=== PATIENT | male | born 1950 | race Caucasian/White ===

== ENCOUNTER 2021-09-26 19:43 | Observation (INO) | payer OTHER, SELFPAY ==
[2021-09-26] VITALS (28 sets, daily range): BP systolic 85–143; BP diastolic 63–91; PULSE 65–106; RESP 14–24; TEMP 36.6; O2SAT 89–97
--- NOTE | ~2021-09-26 | XR_ITS ---
EXAMINATION: XR chest 2V Exam Date/Time: 09/26/2021 20:30 CDT HISTORY: syncope, nausea x today Comparison: None available. RESULT: Lines, tubes, and devices: None. Lungs and pleura: Bibasilar scar/atelectasis, otherwise clear. Cardiomediastinal silhouette: Stable cardiomediastinal silhouette. Other: No acute osseous or upper abdominal finding. IMPRESSION: No acute cardiopulmonary process. Reviewed, dictated and finalized at location K.
--- NOTE | ~2021-09-26 | CT_ITS ---
EXAMINATION: CT brain wo con DATE: 09/26/2021 20:30 INDICATION: head injury, syncope . TECHNIQUE: Computed tomography (CT) of the head was performed without intravenous contrast. The mA wa s adjusted according to patient size. Iterative reconstruction technique was employed. The dose-lengt h product was 605.33 mGy-cm. COMPARISON: None FINDINGS: No acute intracranial hemorrhage or extra-axial fluid collection. No hydrocephalus, mass, or herniation. No acute ischemic infarct. Unremarkable dural venous sinus attenuation. No acute osseous abnormality. The aerated spaces are clear. Mild atrophy and chronic white matter change. Atherosclerotic intracranial calcification. IMPRESSION: No acute intracranial process. Reviewed, dictated and finalized at location K.
--- NOTE | ~2021-09-26 | US_ITS ---
EXAMINATION: US carotid duplex BI DATE: 09/27/2021 17:18 INDICATION: Syncope TECHNIQUE: Grayscale, color Doppler, and pulsed Doppler images of the cervical carotid arteries were obtained. The degree of vessel stenosis is placed in one of the following categories: normal, <50%, 5 0-69%, >=70% but less than near-occlusion, near-occlusion, or total occlusion. Note that percent sten osis relative to normal distal artery lumen diameter is indirectly measured from velocity measurement s as described by Emanuel, et al. Radiology 2003; 229:340-346. COMPARISON: None. FINDINGS: RIGHT: The right common carotid artery (CCA) peak systolic velocity (PSV) is 72 cm/s. The right internal car otid artery (ICA) PSV is 67 cm/s. The right ICA end-diastolic velocity (EDV) is 190.9 cm/s. The right ICA/CCA PSV ratio is 0.9. Grayscale and color Doppler images yield an estimate of <50% diameter redu ction from plaque in the ICA. The external carotid artery (ECA) PSV is 87 cm/s. There is antegrade fl ow in the right vertebral artery. LEFT: The left CCA PSV is 76 cm/s. The left ICA PSV is 56 cm/s. The left ICA EDV is 18 cm/s. The left ICA/C CA PSV ratio is 0.7. Grayscale and color Doppler images yield an estimate of <50% diameter reduction from plaque in the ICA. The ECA PSV is 62 cm/s. There is antegrade flow in the left vertebral artery. IMPRESSION: 1. <50% stenosis in the right internal carotid artery. 2. <50% stenosis in the left internal carotid artery. Reviewed, dictated and finalized at location A.
--- NOTE | 2021-09-26 19:44 | ECG_ITS ---
Measurements Intervals [place] Rate: 106 P: 9 AR: 166 QRS: -24 QRSD: 105 T: 7 QT: 350 QTc: 466 Interpretive Statements SINUS TACHYCARDIA BORDERLINE LEFT AXIS DEVIATION [QRS AXIS < -20] MODERATE VOLTAGE CRITERIA FOR LVH, CONSIDER NORMAL VARIANT [MEETS CRITERIA IN ONE OF: R(aVL), S(V1), R(V5), R(V5/V6)+S(V1)] ABNORMAL RHYTHM ECG NO PREVIOUS ECG AVAILABLE FOR COMPARISON Electronically Signed On 09-27-2021 11:56:53 CDT by Tera Campoverde M.D.
--- NOTE | 2021-09-26 20:03 | ED.GENADULT ---
HPI - General Adult General Chief complaint: Syncope Stated complaint: syncopal episodes History of Present Illness HPI narrative: 70-year-old male with history of hypertension, diabetes presenting to the emergency department for evaluation after having a syncopal episode. Patient states he had been at the [facility] for approximately 4 hours. Patient states prior to going to the [facility] that he felt well. Patient states approximately about an hour before a syncopal episode he began having onset of nausea not feeling well. Patient states he sat down at a table and continued to feel increasingly lightheaded. Patient states he became diaphoretic and often he did have loss of consciousness causing him to fall from the chair. Patient did strike his head when falling from the chair. EMS was called to the scene. Upon arrival to the scene patient was alert and oriented and lying on the ground. Patient's blood pressure was 140 systolic but did drop to 90s when they sat him up. Patient was transported to the emergency room. Upon arrival to the ED patient states he does feel improved. Patient denied any associated chest pain or shortness of breath with this episode. Patient denies any prior history of IA. Patient did have a stress test many years ago but is not sure when. Patient does not take any blood thinners. Patient does take medications for blood control and high cholesterol. Patient does take metformin for her diabetes. Patient's blood sugars were within normal limits. Patient denies any recent illness. Related Data Home Medications Medication Instructions Recorded Confirmed glipizide 5 mg tablet 1 tablet PO 2XD 09/27/21 09/27/21 metformin 500 mg tablet 1 tablet PO 2XD 09/27/21 09/27/21 pravastatin 20 mg tablet 1 tablet PO 1XD 09/27/21 09/27/21 tamsulosin 0.4 mg capsule (Flomax) 1 cap PO 1XD 09/27/21 09/27/21 Allergies Allergy/AdvReac Type Severity Reaction Status Date / Time lisinopril Allergy Severe Anaphylaxis Verified 09/27/21 01:24 Penicillins Allergy Unknown Hives / Verified 09/26/21 19:55 Red Face Review of Systems Review of Systems: CONSTITUTIONAL: Nausea diaphoresis and syncope which is resolved EYES: Denies visual changes, redness, or discharge. ENT: Denies rhinorrhea, congestion, sore throat, or otalgia. CARDIOVASCULAR: Denies chest pain, palpitations, or edema. RESPIRATORY: Denies cough or dyspnea. GASTROINTESTINAL: Denies abdominal pain, nausea, vomiting, or diarrhea. GENITOURINARY: Denies dysuria or hematuria. SKIN: Denies rash or itching. MUSCULOSKELETAL: Denies back pain, joint pain, or myalgia. NEUROLOGIC: Denies headache, numbness, or weakness. [facility] Family History Family History (Updated 09/27/21 @ 00:36 by Bertha Subramanian RN) Father Cerebrovascular accident Mother Diabetes mellitus Social History Social History Smoking packs per day: 0.5 Smoking cigarettes per day: 10.0 Years smoked: 20 Smoking pack-years: 10.00 Smoking status: Former smoker Tobacco type: pipe Second hand tobacco smoke exposure: No Alcohol intake: former Substance use: never Spiritual care concerns: No Exam Narrative: APPEARANCE: Well appearing, no pain, no distress, well-nourished. HEAD: normocephalic, atraumatic. EYES: PERRLA/EOMI, conjunctivae clear. NOSE: Normal no drainage EARS:TMS clear with good light reflex. THROAT: Pharynx clear, no exudate. NECK: Supple. No adenopathy, no masses. RESPIRATORY: Airway patent, respirations nonlabored. Clear to auscultation bilaterally, no rales, rhonchi, wheezing. CARDIOVASCULAR: Regular rate and rhythm without murmurs rubs or gallops. ABDOMINAL: Soft, nontender, nondistended, normal bowel sounds MUSCULOSKELETAL: Moves all extremities. Strength/ROM intact, No edema, No calf tenderness. NEURO: Alert. Cranial nerves II through XII intact. Good gait. Good coordination SKIN: Warm, dry. Normal Color Course Course Emergency Course: [facility]
[2021-09-26 20:09] LABS: Basophils Percent Auto 0.5 % (0.2-1.2); Eosinophils Absolute Auto 0.1 K/mm3 (0-0.3); Eosinophils Percent Auto 1.2 % (0-4.4); Hematocrit 45.3 % (42.0-52.0); Hemoglobin 16.4 g/dL (14.0-18.0); Immature Granulocyte Absolute 0.03 K/mm3 (0.00-0.031); Immature Granulocyte Percent A 0.4 % (0-0.5); Lymphocytes Percent Auto 21.2 % (18.3-44.2); Mean Corpuscular HGB Conc 36.2 g/dl (32-36); Mean Corpuscular Hemoglobin 31.8 pg (26-34); Mean Platelet Volume 9.8 fl (7.4-10.4); Monocytes Absolute Auto 0.7 K/mm3 (0.1-0.6); Monocytes Percent Auto 7.8 % (2.6-8.5); Neutrophils Absolute Auto 5.9 K/mm3 (1.3-6.7); Neutrophils Percent Auto 68.9 % (45.5-73.1); Platelet Count Result 191 k/mm3 (150-375); Red Blood Count 5.15 M/mm3 (4.6-6.20); Red Cell Distribution Width 12.8 % (11.5-14.5); White Blood Count 8.5 K/mm3 (4.5-10.0)
[2021-09-26] MEDS: ONDANSETRON INJ 4 MG/2 ML VIAL IV PUSH (20:10)
[2021-09-26] MEDS: SODIUM CHLORIDE 0.9% IV 1,000 ML 999 ML IV CONT (20:10)
[2021-09-26 20:17] LABS: Lactic Acid Reflex 2.3 mmol/L (0.7-2.0)
[2021-09-26 20:34] LABS: Alanine Aminotransferase 32 U/L (6-50); Albumin Level 4.4 g/dL (3.5-5.1); Alkaline Phosphatase 100 U/L (38-126); Anion Gap 7 mmol/L (8-16); Aspartate Amino Transferase 30 U/L (17-59); Bilirubin,Total 0.8 mg/dL (0.2-1.3); Blood Urea Nitrogen 18 mg/dL (9-20); Carbon Dioxide 28 mmol/L (22-30); Chloride 104 mmol/L (98-107); Estimated CRCL calculation 69 ml/min; Estimated Glomerular Filt Rate > 60; Glucose 181 mg/dL (65-110); Potassium 3.9 mmol/L (3.4-5.0); Sodium 139 mmol/L (137-145)
[2021-09-26 20:46] LABS: NT Pro B Type Natriuretic Pept 107 pg/mL (5-100); Troponin I < 0.012 ng/mL (0.000-0.034)
[2021-09-26 20:57] LABS: D Dimer 0.46 ug/mL (<0.48)
[2021-09-26 21:40] LABS: Appearance Urine Clear (Clear); Bilirubin Urine 1+ (Negative); Blood Urine Negative (Negative); Color Urine Yellow (Yellow); Glucose Urine UA 1+ mg/dL (Negative); Ketones Urine 1+ mg/dL (Negative); Leukocyte Esterase Ur Negative LEU/UL (Negative); Nitrate Urine Negative (Negative); Protein Urine 1+ mg/dL (Negative); Specific Grav Ur >= 1.030 (1.001-1.035); Urobilinogen Urine 0.2 mg/dL (<2.0); pH Urine 5.5 (5.0-9.0)
[2021-09-26 21:55] LABS: Bacteria Urine Trace /hpf; Calcium Oxalate Crystals Urine Present /hpf; Mucus Urine Few /lpf; Squamous Epithelial Cell Urine Rare /hpf (Few)
[2021-09-26 21:56] LABS: Add Urine Microscopic? YES
[2021-09-26 22:10] LABS: SARS-CoV-2 RNA PCR Negative
[2021-09-26] MEDS: SODIUM CHLORIDE 0.9% IV 1,000 ML 100 ML IV CONT (22:20)
[2021-09-26 23:06] LABS: Reflex Lactic Acid Yes or No Add Lactic
[2021-09-27] VITALS (9 sets, daily range): BP systolic 106–144; BP diastolic 52–76; PULSE 62–87; RESP 17–20; TEMP 36.3–37.1; O2SAT 94–98; BMI 33.2
--- NOTE | 2021-09-27 00:55 | ADMGEN ---
This patient, Shaan Horton, was admitted to 3 [facility] Surg Room 319-01. Patient/family oriented to hospital policies and general routines including ID bracelet, bed and alarms, visiting hours, pain management, procedures, bathroom and other care routines, personal items, smoking policy, room service/diet, and visiting hours. Information on how to activate the Rapid Response Team has been discussed. Patient/Family are encouraged to report perceived risks to care and to ask questions if they do not understand what they are told or what they should do.
[2021-09-27 00:56] LABS: Lactic Acid 1.5 mmol/L (0.7-2.0)
[2021-09-27] MEDS: SODIUM CHLORIDE 0.9% IV 1,000 ML 100 ML IV CONT ×2 (01:58→12:14)
[2021-09-27 08:06] LABS: Glucose Point of Care 180 mg/dl (65-105)
--- NOTE | 2021-09-27 08:22 | PM.IMHP ---
H&P: HPI History of Present Illness Date/Time: 09/27/21 08:22 Chief Complaint: Syncopal episode Narrative: Patient 70-year-old male with past medical history of hypertension, diabetes mellitus type 2, BPH, and tobacco dependence. Patient presented to [facility] for further evaluation after having a syncopal episode. Patient reports that he has been at the [facility] for approximately 4 hours prior to this episode. Patient states prior to going to the [facility] that he fell well. Approximately [place] hour before syncopal episode he began having onset of nausea. Patient was able to sit down as a table and continue to feel increasingly lightheaded. He became diaphoretic and lost consciousness causing him to fall from the chair onto the floor. Patient did strike his head when falling from a chair. Ambulance was called to the scene. Upon arrival to the scene the patient was alert and oriented lying on the ground. His blood pressure was 140 systolic leads however it did drop to the 90s when they sat him up. Patient was transported to the emergency room. Upon arrival to the emergency department the patient did feel improvement. He denied any associated chest pain shortness breast with the syncopal episode. During the evaluation in the emergency department the patient were denied any history of a myocardial infarction. He does report a stress test many years ago but was unsure the results. Patient does not take any blood thinners. He denies any medications for blood pressure control. Patient does take metformin on a regular basis and reports compliance for his diabetes mellitus. Blood sugars have been WNL. Patient denies any recent sick contacts or illnesses. Further workup was performed in the emergency department and labs and imaging were obtained. Patient had a WBC of 8.5, hemoglobin 16.4, hematocrit 45.3, platelet count 191, D-dimer 0.46, lactic acid 2.3. UA was obtained which revealed yellow clear urine with trace bacteria. CT of the head did not reveal acute intracranial process and chest x-ray did not reveal an acute cardiopulmonary process. EKG was performed and revealed tachycardia, sinus rhythm with nonspecific ST changes and normal QRS. Hospitalist team was consulted for further management admitted to observation for further workup. Review of Systems Review of Systems: All systems reviewed & are unremarkable except as noted in HPI and below PMFSH Family History Family History (Updated 09/27/21 @ 00:36 by Bertha D. Moris, RN) Father Cerebrovascular accident Mother Diabetes mellitus Social History Social History Smoking packs per day: 0.5 Smoking cigarettes per day: 10.0 Years smoked: 20 Smoking pack-years: 10.00 Smoking status: Former smoker Tobacco type: pipe Second hand tobacco smoke exposure: No Alcohol intake: former Substance use: never Spiritual care concerns: No Meds Home Medications and Allergies Home Medications Medication Instructions Recorded Confirmed Type glipizide 5 mg tablet 1 tablet PO 2XD 09/27/21 09/27/21 History metformin 500 mg tablet 1 tablet PO 2XD 09/27/21 09/27/21 History pravastatin 20 mg tablet 1 tablet PO 1XD 09/27/21 09/27/21 History tamsulosin 0.4 mg capsule (Flomax) 1 cap PO 1XD 09/27/21 09/27/21 History Allergies Allergy/AdvReac Type Severity Reaction Status Date / Time lisinopril Allergy Severe Anaphylaxis Verified 09/27/21 01:24 Penicillins Allergy Unknown Hives / Verified 09/26/21 19:55 Red Face Vital Signs Vital Signs - 24 hr 09/26/21 19:49 09/26/21 20:15 09/26/21 20:18 Temperature 97.9 F Pulse Rate 101 H 101 H Respiratory Rate 18 Blood Pressure 140/86 140/86 Pulse Oximetry 95 93 Oxygen Delivery Room Air Room Air 09/26/21 20:18 09/26/21 19:55 09/26/21 20:00 Temperature Pulse Rate 106 H 103 H 92 Respiratory Rate 16 20 Blood Pressure 143/77 H Pulse Oximetry 93 92 Oxygen Ela
--- NOTE | 2021-09-27 08:27 | ECHO_ITS ---
Patient Info Name: Shaan Horton Age: 70 years : 1950 Gender: Male Ht: 72 in Wt: 244 lbs BSA: 2.40 m2 HR: 63 bpm BP: 116 / 52 mmHg Heart Rhythm: Sinus Rhythm Technical Quality: Fair Exam Date: 09/27/2021 10:07 AM Exam Location: [facility] Pulmonary Patient Status: Inpatient Admit Date: 09/26/2021 Staff Ordering Physician: Tiffanie Weathers APRN Accounting Machine Operator: Michelle Pradhan RDCS Attending Provider: Geovani Maldonado MD Referring Physician: Jasiel AYALA; Exam Type: CA echo dop color flow w con Study Info Indications - SOB Complete two-dimensional, color flow and Doppler transthoracic echocardiogram is performed with contrast to opacify the left ventricle and to improve the deliniation of the left ventricle endocardial borders. Contrast/Agitated Saline Contrast/Ag. Saline: Definity Amount: 3.00 ml Administered By: Michelle Pradhan RDCS Existing IV Access: Yes IV Access Condition: patent with no signs of infiltration Summary 1. Normal left ventricular size with mild concentric hypertrophy. Good systolic function of all segments with no segmental wall motion abnormality. Ejection fraction is 72%. Grade 2 diastolic dysfunction is present. 2. Left atrial chamber dimension is mildly enlarged. 3. No pulmonary hypertension, estimated pulmonary arterial systolic pressure is 25 mmHg. 4. Mild aortic valve calcification; probably trileaflet aortic valve, no significant stenosis. 5. Normal sinus rhythm. 6. Technically difficult study; definity echo contrast used. Left Ventricle Left ventricular chamber dimension is normal. Left ventricular systolic function is normal, estimated at 65-70%. There is mildly increased left ventricular wall thickness. Left ventricular septal wall motion is normal. The left ventricular diastolic function is grade II diastolic dysfunction. Right Ventricle Right ventricular chamber dimension is normal. Right ventricular systolic function is normal. Left Atria Left atrial chamber dimension is mildly enlarged. Right Atria Right atrial chamber dimension is normal. Aortic Valve The aortic valve is probable trileaflet. There is no aortic valve sclerosis. There is no aortic valve stenosis. There is no aortic valve regurgitation. There is mild aortic valve calcification. Pulmonic Valve The pulmonic valve is normal. There is no pulmonic valve stenosis. There is no pulmonic regurgitation. Mitral Valve The mitral valve has normal leaflets. There is no mitral valve stenosis. There is no mitral valve regurgitation. Tricuspid Valve The tricuspid valve leaflets are normal. There is no significant tricuspid valve stenosis. There is trace tricuspid valve regurgitation. No pulmonary hypertension, estimated pulmonary arterial systolic pressure is 25 mmHg. Pericardium/Pleural The pericardium appears normal. There is no pericardial effusion. Inferior Vena Cava Not well visualized inferior vena cava with >50% collapse upon inspiration consistent with Empty right atrial pressure, 10 mmHg. Aorta The aortic root size at the sinus of Valsalva is normal. The prox ascending aorta size is normal. Left Ventricular Outflow Tract Name Value Normal LVOT 2D
--- NOTE | 2021-09-27 09:19 | PC.NURSE ---
called pharmacy for lovenox, flomax and pravastatin this morning, awaiting delivery of medication.
[2021-09-27 09:28] LABS: Hemoglobin A1C 7.7 % (<5.7)
[2021-09-27 09:33] LABS: Iron 90 ug/dL (49-181)
[2021-09-27 09:42] LABS: Percent Iron Saturation 31 % (20-50)
[2021-09-27] MEDS: PRAVASTATIN SODIUM 20 MG TABLET PO (09:48)
[2021-09-27] MEDS: ENOXAPARIN 40 MG/0.4 ML SYRINGE SUB-Q (09:48)
[2021-09-27] MEDS: TAMSULOSIN HCL 0.4 MG CAPSULE PO (09:48)
--- NOTE | 2021-09-27 10:00 | PCPTNOTE ---
Attempted to see patient for physical therapy evaluation at 10:00. Patient was getting EKG.
[2021-09-27] MEDS: PERFLUTREN LIPID MICROSPHERES 1.5 ML VIAL DILUTED TO 10 ML TOTAL VOLUME IV PUSH (10:38)
--- NOTE | 2021-09-27 10:39 | IVDEFINITY ---
Prior to administration of IV Definity the patient was educated on the risks and benefits of the imaging enhancing agent including potential adverse side effects. The patient verbalized understanding. Allergies were verified. No exclusion criteria were identified and at least one of the following inclusion criteria were met: 1) physician request, 2) patient technically difficult to image (per the [place] [employer] Echocardi[employer] guidelines of two or more segments not discernable within the apical view), or 3) questionable left ventricular function. ?
[2021-09-27] MEDS: INSULIN ASPART (*BKC) 100 UNITS/ML SUB-Q ×2 (11:49→16:51)
[2021-09-27 12:10] LABS: Glucose Point of Care 216 mg/dl (65-105)
[2021-09-27 16:46] LABS: Glucose Point of Care 226 mg/dl (65-105)
[2021-09-27] MEDS: MELATONIN 5 MG TABLET PO (20:44)
[2021-09-27 20:50] LABS: Glucose Point of Care 197 mg/dl (65-105)
[2021-09-28] VITALS (8 sets, daily range): BP systolic 126–149; BP diastolic 70–83; PULSE 53–101; RESP 18; TEMP 36.3–36.8; O2SAT 93–97
[2021-09-28 07:07] LABS: Basophils Percent Auto 0.5 % (0.2-1.2); Eosinophils Absolute Auto 0.2 K/mm3 (0-0.3); Eosinophils Percent Auto 2.5 % (0-4.4); Hematocrit 40.1 % (42.0-52.0); Hemoglobin 14.2 g/dL (14.0-18.0); Immature Granulocyte Absolute 0.02 K/mm3 (0.00-0.031); Immature Granulocyte Percent A 0.3 % (0-0.5); Lymphocytes Absolute Auto 1.88 K/mm3 (0.9-3.2); Lymphocytes Percent Auto 31.9 % (18.3-44.2); Mean Corpuscular HGB Conc 35.4 g/dl (32-36); Mean Corpuscular Volume 90.3 fl (80-100); Mean Platelet Volume 10.3 fl (7.4-10.4); Monocytes Absolute Auto 0.6 K/mm3 (0.1-0.6); Monocytes Percent Auto 9.8 % (2.6-8.5); Neutrophils Absolute Auto 3.2 K/mm3 (1.3-6.7); Platelet Count Result 163 k/mm3 (150-375); Red Blood Count 4.44 M/mm3 (4.6-6.20); Red Cell Distribution Width 13.1 % (11.5-14.5); White Blood Count 5.9 K/mm3 (4.5-10.0)
[2021-09-28 07:25] LABS: Alanine Aminotransferase 26 U/L (6-50); Albumin Level 3.4 g/dL (3.5-5.1); Alkaline Phosphatase 80 U/L (38-126); Anion Gap 4 mmol/L (8-16); Aspartate Amino Transferase 26 U/L (17-59); Bilirubin,Total 0.9 mg/dL (0.2-1.3); Blood Urea Nitrogen 12 mg/dL (9-20); Calcium 8.3 mg/dL (8.4-10.2); Carbon Dioxide 27 mmol/L (22-30); Chloride 107 mmol/L (98-107); Estimated CRCL calculation 85 ml/min; Estimated Glomerular Filt Rate > 60; Glucose 157 mg/dL (65-110); Magnesium 1.8 mg/dL (1.6-2.3); Potassium 3.5 mmol/L (3.4-5.0); Sodium 138 mmol/L (137-145)
[2021-09-28 08:07] LABS: Glucose Point of Care 163 mg/dl (65-105)
[2021-09-28] MEDS: TAMSULOSIN HCL 0.4 MG CAPSULE PO (08:29)
[2021-09-28] MEDS: PRAVASTATIN SODIUM 20 MG TABLET PO (08:29)
[2021-09-28] MEDS: ENOXAPARIN 40 MG/0.4 ML SYRINGE SUB-Q (08:30)
[2021-09-28 11:51] LABS: Glucose Point of Care 210 mg/dl (65-105)
[2021-09-28] MEDS: INSULIN ASPART (*BKC) 100 UNITS/ML SUB-Q (12:00)
--- NOTE | 2021-09-28 13:23 | PM.DS ---
DS: Admitting Diagnosis Discharge Date 09/28/2021 Admitting Diagnosis syncope and collapse DS: Discharge Diagnosis Discharge Diagnosis (1) Syncope and collapse: Code(s): R55 - Syncope and collapse Status: Acute Assessment and Plan: Monitor vital signs, I&Os, chest pain, shortness of breath and patient is a fall risk Monitor Serum electrolytes, and cbc Keep serum potassium >4 and keep magnesium >2 Consider Cardiology consult, appreciate assistance and recommendations Obtain an Echocardiogram Continue with pravastatin 20 mg daily Consider adding aspirin 81 mg daily (2) Head injury: Qualifiers: Encounter type: initial encounter Qualified Code(s): S09.90XA - Unspecified injury of head, initial encounter Code(s): S09.90XA - Unspecified injury of head, initial encounter Status: Acute Assessment and Plan: Patient had a syncopal episode at the [facility]. Upon arrival to the emergency department a CT of the head was performed. CT did not reveal acute intracranial processes. Neuro checks q.4 hours (3) Diabetes mellitus: Code(s): E11.9 - Type 2 diabetes mellitus without complications Status: Acute Assessment and Plan: Insulin Lispro sliding scale, Accu-checks qAc and HS and Hold oral hypoglycemics Obtain a HgbA1c DS: Summary Hospital Course Reason for hospitalization: syncope and collapse Hospital Course: Patient 70-year-old male with past medical history of hypertension, diabetes mellitus type 2, BPH, and tobacco dependence.? Patient presented to [facility] for further evaluation after having a syncopal episode.? Patient reports that he has been at the [email or web address] for approximately 4 hours prior to this episode.? Patient states prior to going to the [facility] that he fell well.? Approximately [place] hour before syncopal episode he began having onset of nausea.? Patient was able to sit down as a table and continue to feel increasingly lightheaded.? He became diaphoretic and lost consciousness causing him to fall from the chair onto the floor.? Patient did strike his head when falling from a chair.? Ambulance was called to the scene.? Upon arrival to the scene the patient was alert and oriented lying on the ground.? His blood pressure was 140 systolic leads however it did drop to the 90s when they sat him up.? Patient was transported to the emergency room.? Upon arrival to the emergency department the patient did feel improvement.? He denied any associated chest pain shortness breast with the syncopal episode. During the evaluation in the emergency department the patient were denied any history of a myocardial infarction.? He does report a stress test many years ago but was unsure the results.? Patient does not take any blood thinners.? He denies any medications for blood pressure control.? Patient does take metformin on a regular basis and reports compliance for his diabetes mellitus.? Blood sugars have been WNL.? Patient denies any recent sick contacts or illnesses. Further workup was performed in the emergency department and labs and imaging were obtained.? Patient had a WBC of 8.5, hemoglobin 16.4, hematocrit 45.3, platelet count 191, D-dimer 0.46, lactic acid 2.3.? UA was obtained which revealed yellow clear urine with trace bacteria.? CT of the head did not reveal acute intracranial process and chest x-ray did not reveal an acute cardiopulmonary process.? EKG was performed and revealed tachycardia, sinus rhythm with nonspecific ST changes and normal QRS. upon further evaluation when the patient was admitted to the floor a echocardiogram was performed which revealed a grade 2 diastolic dysfunction with LVEF of 72%. carotid Dopplers revealed less than 50% stenosis bilaterally. No significant events on telemetry monitoring. Patient did not have a repeat episode of syncope includes. Patient did know he has a history of vertigo and possibly related to this.
--- NOTE | 2021-09-28 14:01 | PCCCNOTE ---
On 09/28/21, the student, [Marielle Gibbs], provided care and completed [facility] documentation on this patient. I have reviewed the student's documentation and agree with the findings.
== END 2021-09-28 14:21 | disposition home or self-care (01) ==
LOC: ANHED 20:13 → ANH3MEDSUR 09-27 09:46
PROVIDERS: Admitting Provider Internal Medicine; Emergency Provider Emergency Medicine; PCP Nurse Practitioner Adult Health; Visit Provider Nurse Practitioner Family
DX: R55 Syncope and collapse (principal); S09.90XA Unspecified injury of head, initial encounter; I10 Essential (primary) hypertension; E11.9 Type 2 diabetes mellitus without complications; N40.0 Benign prostatic hyperplasia without lower urinary tract symptoms; Z79.84 Long term (current) use of oral hypoglycemic drugs; Z87.891 Personal history of nicotine dependence; W07.XXXA Fall from chair, initial encounter; Z20.822 Contact with and (suspected) exposure to COVID-19
CPT/HCPCS: 36415; 70450; 71046; 80053; 81001; 82607; 82948; 83036; 83540; 83550; 83605; 83735; 83880; 84443; 84484; 85025; 85380; 87086; 87088; 93005; 93880; 96361; 96372; 96374; 96375; 97161; 97165; 99285; A9270; C8929; C9803; G0378; J1650; J1815; J2405; J7030; Q9957; U0003; U0005